=== PATIENT | male | born 1945 | race Caucasian/White ===

== ENCOUNTER → 2016-11-19 | Outpatient (CLI) | payer MEDICARE ==
--- NOTE | 2016-11-19 09:03 | US ---
EXAMINATION TYPE: US prostate transrectal DATE OF EXAM: 11/19/2016 8:38 AM COMPARISON: See PACS CLINICAL HISTORY: N40.0 BPH/R97.2 elevated PSA. This examination was performed using the transrectal probe. EXAM MEASUREMENTS: Gland Size: 10.2 x 6.1 x 7.2cm Volume: 235.1 Predicted PSA: 28.2 Actual PSA (if available):8.8 Findings: Midline calcifications, with shadowing, grossly heterogenous with overall [place] cheese appe arance, grossly enlarged, unable to see seminal vesicles due to large size. IMPRESSION: 1. Markedly enlarged gland without suspicious lesion identified. Predicted PSA = volume x 0.12 ng/ml Calculated Volume = 0.5236 x L x W x H
== END ==
LOC: RADUSMAIN 08:03
PROVIDERS: ATTEND Family Medicine
DX: N40.0 Benign prostatic hyperplasia without lower urinary tract symptoms (principal)
CPT/HCPCS: 76872